=== PATIENT | female | born 1940 | race Caucasian/White ===

== ENCOUNTER 2023-03-19 13:33 | Inpatient (IN) | payer MEDICARE, OTHER ==
[~2023-03-19] VITALS: Ht 152.4 cm; Wt 77.6 kg
[2023-03-19 14:28] LABS: BASOPHILS # (AUTO) 0.1 K/uL (0.0-0.2); BASOPHILS % (AUTO) 0.7 % (0.0-2.0); EOSINOPHILS # (AUTO) 0.1 K/uL (0.0-0.7); EOSINOPHILS % (AUTO) 0.9 % (0.0-6.0); HEMATOCRIT 37 % (33-45); HEMOGLOBIN 12.2 g/dL (11.5-14.8); LYMPHOCYTES # (AUTO) 2.1 K/uL (0.8-4.8); LYMPHOCYTES % (AUTO) 22.9 % (20.0-44.0); MEAN CORPUSCULAR HEMOGLOBIN 29 PG (26.0-33.0); MEAN CORPUSCULAR HGB CONC 33 g/dl (31.0-36.0); MEAN CORPUSCULAR VOLUME 88 fL (82-100); MONOCYTES # (AUTO) 0.6 K/uL (0.1-1.30); MONOCYTES % (AUTO) 6.3 % (2.0-12.0); NEUTROPHILS # (AUTO) 6.3 K/uL (1.8-8.9); NEUTROPHILS % (AUTO) 69.2 % (43.0-81.0); PLATELET COUNT (AUTO) 310 K/uL (150-450); RED BLOOD CELL COUNT(AUTO) 4.18 MIL/uL (4.0-5.2); RED CELL DISTRIBUTION WIDTH 14.4 % (11.5-15.0); WHITE BLOOD COUNT (AUTO) 9.1 K/uL (4.3-11.0)
[2023-03-19 14:36] LABS: CARBON DIOXIDE 25 mmol/L (21-32); CHLORIDE 100 mmol/L (98-107); CREATININE 1.1 mg/dL (0.6-1.3); GLUCOSE 203 mg/dL (74-106); POTASSIUM 3.5 mmol/L (3.5-5.1); SODIUM SERUM 137 mmol/L (136-145); UREA NITROGEN, BLOOD 21 mg/dL (7-18)
[2023-03-19 14:50] LABS: NT-PRO BNP 64 pg/mL (0-125)
[2023-03-19] MEDS ORDERED: TRAM50TA2 PO (15:30)
[2023-03-19] MEDS ORDERED: INSU100V7 SQ (15:30)
[2023-03-19] MEDS ORDERED: METF-442 PO (15:30)
[2023-03-19] MEDS ORDERED: AMLO-212 PO (15:30)
[2023-03-19] MEDS ORDERED: LEVO75TA7 PO (15:30)
[2023-03-19] MEDS ORDERED: SEMA0.25 PO (15:30)
[2023-03-19] MEDS ORDERED: INSU100V3 SQ (15:30)
[2023-03-19] MEDS ORDERED: ACET-73 PO (15:30)
[2023-03-19] MEDS ORDERED: INSU100V SQ (15:41)
[2023-03-19] MEDS ORDERED: IV NS 0.9% 250 ML IV ONE (16:43)
[2023-03-19] MEDS ORDERED: IOHEXOL-350 100 ML VIAL IV ONE (16:43)
[2023-03-19] MEDS ORDERED: ONDANSETRON HCL/PF 4 MG/2 ML VIAL IVP PRN (17:00)
[2023-03-19] MEDS ORDERED: ACETAMINOPHEN ES 500 MG TABLET PO PRN (17:00)
[2023-03-19] MEDS ORDERED: TRAMADOL HCL 50 MG TABLET PO PRN (17:00)
[2023-03-19] MEDS ORDERED: NITROGLYCERIN 0.4 MG/TAB BOTTLE SL PRN (17:00)
[2023-03-19] MEDS ORDERED: ASPIRIN 81 MG TAB.CHEW PO ONE (19:30)
[2023-03-19] MEDS ORDERED: ASPIRIN 81 MG TAB.CHEW ONE (19:49)
[2023-03-19 20:34] LABS: ALBUMIN 3.5 g/dL (3.4-5.0); BILIRUBIN,DIRECT 0.1 mg/dL (0.0-0.2); BILIRUBIN,TOTAL 0.4 mg/dL (0.2-1.0); TOTAL PROTEIN, SERUM 7.5 g/dL (6.4-8.2)
[2023-03-19] MEDS: METFORMIN 500 MG TABLET PO SCH (23:04)
[2023-03-19] MEDS: MORPHINE SULFATE INJ 2 MG/ML DISP.SYRIN IV PRN ×2 (23:06→23:53)
[2023-03-19] MEDS: CARVEDILOL 6.25 MG TABLET PO SCH (23:07)
[2023-03-19] MEDS: INSULIN LISPRO/ASPART 100 UNIT/ML CARTRIDGE SQ SCH (23:29)
[2023-03-19] MEDS: INSULIN GLARGINE, 100 UNIT/ML CARTRIDGE SQ SCH (23:32)
[2023-03-20] VITALS: BP 159/70; TEMP 98.2; O2SAT 98
[2023-03-20 04:00] VITALS: BP 125/60; TEMP 98.1; O2SAT 99
[2023-03-20] MEDS: LEVOTHYROXINE SODIUM 75 MCG TABLET PO SCH ×2 (07:52→08:21)
[2023-03-20 08:00] VITALS: BP 127/60; TEMP 98.4; O2SAT 97
[2023-03-20] MEDS: AMLODIPINE BESYLATE 5 MG TABLET PO SCH (08:26)
[2023-03-20] MEDS: METFORMIN 500 MG TABLET PO SCH ×2 (08:26→17:17)
[2023-03-20] MEDS: CARVEDILOL 6.25 MG TABLET PO SCH ×2 (08:27→21:00)
[2023-03-20] MEDS: INSULIN LISPRO/ASPART 100 UNIT/ML CARTRIDGE SQ SCH ×3 (08:47→17:27)
[2023-03-20 09:28] LABS: CHOLESTEROL 145 mg/dL (<200); HDL CHOLESTEROL 36 mg/dL (40-60); LDL 50 mg/dL (0-99); TRIGLYCERIDES 319 mg/dL (30-150)
[2023-03-20 12:00] VITALS: BP 113/63; TEMP 98.2; O2SAT 97
[2023-03-20 16:00] VITALS: BP 117/54; TEMP 98.6; O2SAT 98
[2023-03-20 17:16] LABS: BASOPHILS # (AUTO) 0.1 K/uL (0.0-0.2); BASOPHILS % (AUTO) 0.7 % (0.0-2.0); EOSINOPHILS # (AUTO) 0.1 K/uL (0.0-0.7); EOSINOPHILS % (AUTO) 1.5 % (0.0-6.0); HEMATOCRIT 35 % (33-45); HEMOGLOBIN 11.7 g/dL (11.5-14.8); LYMPHOCYTES # (AUTO) 1.9 K/uL (0.8-4.8); LYMPHOCYTES % (AUTO) 24.3 % (20.0-44.0); MEAN CORPUSCULAR HEMOGLOBIN 29 PG (26.0-33.0); MEAN CORPUSCULAR HGB CONC 34 g/dl (31.0-36.0); MEAN CORPUSCULAR VOLUME 87 fL (82-100); MONOCYTES # (AUTO) 0.6 K/uL (0.1-1.30); MONOCYTES % (AUTO) 7.4 % (2.0-12.0); NEUTROPHILS # (AUTO) 5.2 K/uL (1.8-8.9); NEUTROPHILS % (AUTO) 66.1 % (43.0-81.0); PLATELET COUNT (AUTO) 259 K/uL (150-450); RED BLOOD CELL COUNT(AUTO) 3.99 MIL/uL (4.0-5.2); RED CELL DISTRIBUTION WIDTH 14.1 % (11.5-15.0); WHITE BLOOD COUNT (AUTO) 7.9 K/uL (4.3-11.0)
[2023-03-20 18:06] LABS: CALCIUM, SERUM 9.8 mg/dL (8.5-10.1); POTASSIUM 3.8 mmol/L (3.5-5.1)
[2023-03-20 20:00] VITALS: BP 134/61; TEMP 98.1; O2SAT 97
[2023-03-20] MEDS: INSULIN GLARGINE, 100 UNIT/ML CARTRIDGE SQ SCH (22:00)
[2023-03-21] VITALS: BP 137/64; TEMP 98.1; O2SAT 98
[2023-03-21 04:00] VITALS: BP 124/58; TEMP 98.4; O2SAT 97
[2023-03-21] MEDS ORDERED: MAGNESIUM HYDROXIDE 30 ML UDC PO PRN (05:30)
[2023-03-21] MEDS: METFORMIN 500 MG TABLET PO SCH (07:43)
[2023-03-21] MEDS: INSULIN LISPRO/ASPART 100 UNIT/ML CARTRIDGE SQ SCH ×2 (07:45→12:56)
[2023-03-21 08:00] VITALS: BP 117/82; TEMP 98.6; O2SAT 97
[2023-03-21] MEDS: CARVEDILOL 6.25 MG TABLET PO SCH (08:41)
[2023-03-21] MEDS: AMLODIPINE BESYLATE 5 MG TABLET PO SCH (08:41)
[2023-03-21 12:00] VITALS: BP 143/65; TEMP 98.2; O2SAT 97
[2023-03-24] MEDS ORDERED: Medication Not On Formulary EA (Semaglutide (Ozempic) 0.25 MG) PO SCH (17:00)
== END 2023-03-21 17:20 | disposition home or self-care (01) | DRG 313 ==
LOC: ER 13:40 → TELE1 20:51
PROVIDERS: ADMIT Internal Medicine
DX: R07.89 Other chest pain (principal); I10 Essential (primary) hypertension; E03.9 Hypothyroidism, unspecified; E11.9 Type 2 diabetes mellitus without complications; Z85.3 Personal history of malignant neoplasm of breast; Z20.822 Contact with and (suspected) exposure to COVID-19; Z79.4 Long term (current) use of insulin; Z79.84 Long term (current) use of oral hypoglycemic drugs; Z79.899 Other long term (current) drug therapy; Z79.85 Long-term (current) use of injectable non-insulin antidiabetic drugs; Z79.890 Hormone replacement therapy
CPT/HCPCS: 36415; 71045-TC; 80048-TC; 80061-TC; 80076-TC; 82962-TC; 83690-TC; 83880; 84484-TC; 85025-TC; 93307-TC; G0378; J1815; J2270; J7050; Q9967

== ENCOUNTER 2024-06-04 12:54 | Inpatient (IN) | payer MEDICARE, OTHER ==
[~2024-06-04] VITALS: Ht 152.4 cm; Wt 82.6 kg
[~2024-06-04 12:54] MED LIST: ACET-73 PO; AMLO-212 PO; INSU100V SQ; INSU100V7 SQ; LEVO75TA7 PO; METF-442 PO; SEMA0.25 PO; TRAM50TA2 PO
[2024-06-04] MEDS: IV NS 0.9% 500 ML BAG IV ONE (14:18)
[2024-06-04] MEDS ORDERED: LATA2.5D15 EACHEYE (16:41)
[2024-06-04] MEDS ORDERED: CARB15DR EACHEYE (16:41)
[2024-06-04] MEDS ORDERED: PANT40TA49 PO (16:41)
[2024-06-04] MEDS ORDERED: ROSU40TA23 PO (16:41)
[2024-06-04] MEDS ORDERED: LOSA25TA27 PO (16:41)
[2024-06-04] MEDS ORDERED: DICL100G34 TP (16:41)
[2024-06-04 17:23] LABS: BASOPHILS % (AUTO) 0.8 % (0.0-2.0); EOSINOPHILS # (AUTO) 0.2 K/uL (0.0-0.7); EOSINOPHILS % (AUTO) 2.9 % (0.0-6.0); HEMATOCRIT 31 % (33-45); HEMOGLOBIN 10.1 g/dL (11.5-14.8); LYMPHOCYTES # (AUTO) 1.7 K/uL (0.8-4.8); LYMPHOCYTES % (AUTO) 28.4 % (20.0-44.0); MEAN CORPUSCULAR HEMOGLOBIN 29 PG (26.0-33.0); MEAN CORPUSCULAR HGB CONC 33 g/dl (31.0-36.0); MEAN CORPUSCULAR VOLUME 86 fL (82-100); MONOCYTES # (AUTO) 0.4 K/uL (0.1-1.30); MONOCYTES % (AUTO) 7.6 % (2.0-12.0); NEUTROPHILS # (AUTO) 3.5 K/uL (1.8-8.9); NEUTROPHILS % (AUTO) 60.3 % (43.0-81.0); PLATELET COUNT (AUTO) 263 K/uL (150-450); RED BLOOD CELL COUNT(AUTO) 3.54 MIL/uL (4.0-5.2); RED CELL DISTRIBUTION WIDTH 15.2 % (11.5-15.0); WHITE BLOOD COUNT (AUTO) 5.8 K/uL (4.3-11.0)
[2024-06-04 17:40] LABS: CALCIUM, SERUM 9.1 mg/dL (8.5-10.1); CARBON DIOXIDE 25 mmol/L (21-32); CHLORIDE 108 mmol/L (98-107); CREATININE 1.3 mg/dL (0.6-1.3); GLUCOSE 256 mg/dL (74-106); POTASSIUM 4.3 mmol/L (3.5-5.1); SODIUM SERUM 142 mmol/L (136-145); UREA NITROGEN, BLOOD 25 mg/dL (7-18)
[2024-06-04 17:42] LABS: APPEARANCE,URINE CLEAR (CLEAR); BILIRUBIN,URINE NEGATIVE (NEGATIVE); BLOOD, URINE 3+ Ery/uL (NEGATIVE); COLOR,URINE YELLOW (YELLOW); KETONES,URINE NEGATIVE (NEGATIVE); LEUKOCYTE ESTERASE ,URINE NEGATIVE (NEGATIVE); NITRITE, URINE NEGATIVE (NEGATIVE); PH,URINE 6.5 (5.0-8.0); PROTEIN,URINE TRACE mg/dl (NEGATIVE); UGLUCOSE 1+ mg/dL (NEGATIVE); UROBILINOGEN,URINE 0.2 EU/dL (0.2)
[2024-06-04 17:43] LABS: PREGNANCY TEST URINE QUAL NEGATIVE (NEGATIVE)
[2024-06-04 17:55] LABS: ALANINE AMINOTRANSFERASE 82 U/L (12-78); ALBUMIN 3.2 g/dL (3.4-5.0); ALKALINE PHOSPHATASE 112 U/L (46-116); ASPARTATE AMINOTRANSFERASE 143 U/L (15-37); BILIRUBIN,DIRECT 0.1 mg/dL (0.0-0.2); BILIRUBIN,TOTAL 0.3 mg/dL (0.2-1.0); TOTAL PROTEIN, SERUM 7.1 g/dL (6.4-8.2)
[2024-06-04 18:08] LABS: THYROID STIMULATING HORMONE 2.27 uIU/mL (0.358-3.74)
[2024-06-04 18:24] LABS: BACTERIA,URINE Few /HPF (None Seen); SQUAMOUS EPITHELIAL CELL,UR Few /HPF (None Seen)
[2024-06-04 18:25] LABS: ADD URINE CULTURE YES
[2024-06-04] MEDS ORDERED: DEXTROSE 50%-WATER 50 ML DISP.SYRIN IV PRN (18:30)
[2024-06-04] MEDS ORDERED: Z GUARD REMEDY 4 OZ OINT TP PRN (18:30)
[2024-06-04] MEDS ORDERED: ONDANSETRON HCL/PF 4 MG/2 ML VIAL IVP PRN (18:30)
[2024-06-04] MEDS ORDERED: MAG HYDROX/AL HYDROX/SIMETH 30 ML UDC PO PRN (18:30)
[2024-06-04] MEDS ORDERED: ZOLPIDEM TARTRATE 5 MG TABLET PO PRN (18:30)
[2024-06-04] MEDS: GABAPENTIN 100 MG CAPSULE PO SCH (18:40)
[2024-06-04] MEDS: ENOXAPARIN SODIUM 40 MG/0.4 ML DISP.SYRIN SQ SCH (18:42)
[2024-06-04 19:53] LABS: THYROID STIMULATING HORMONE 2.33 uIU/mL (0.358-3.74)
[2024-06-04 20:00] VITALS: BP 152/69; TEMP 97.7; O2SAT 98
[2024-06-04] MEDS: BLOOD SUGAR DIAGNOSTIC 1 EACH STRIP IN SCH (20:54)
[2024-06-04] MEDS: IV NS 0.9% 1,000 ML IV PRN (21:20)
[2024-06-04] MEDS: INSULIN REGULAR, HUMAN 100 UNIT/ML 3 ML VIAL SQ PRN (21:23)
[2024-06-04] MEDS: ACETAMINOPHEN 325 MG TABLET PO PRN (23:01)
[2024-06-05] VITALS (8 sets, daily range): BP systolic 142–178; BP diastolic 49–100; TEMP 97.7–98.4; O2SAT 97–100
[2024-06-05] MEDS: HYDROCODONE/APAP 5/325MG TABLET PO PRN (01:26)
[2024-06-05 06:55] LABS: BASOPHILS # (AUTO) 0.1 K/uL (0.0-0.2); BASOPHILS % (AUTO) 1.4 % (0.0-2.0); EOSINOPHILS # (AUTO) 0.2 K/uL (0.0-0.7); EOSINOPHILS % (AUTO) 4.1 % (0.0-6.0); HEMATOCRIT 29 % (33-45); LYMPHOCYTES # (AUTO) 1.7 K/uL (0.8-4.8); MEAN CORPUSCULAR HEMOGLOBIN 29 PG (26.0-33.0); MEAN CORPUSCULAR HGB CONC 34 g/dl (31.0-36.0); MEAN CORPUSCULAR VOLUME 86 fL (82-100); MONOCYTES # (AUTO) 0.5 K/uL (0.1-1.30); MONOCYTES % (AUTO) 9.4 % (2.0-12.0); NEUTROPHILS # (AUTO) 2.7 K/uL (1.8-8.9); NEUTROPHILS % (AUTO) 52.1 % (43.0-81.0); PLATELET COUNT (AUTO) 256 K/uL (150-450); RED BLOOD CELL COUNT(AUTO) 3.44 MIL/uL (4.0-5.2); RED CELL DISTRIBUTION WIDTH 14.8 % (11.5-15.0); WHITE BLOOD COUNT (AUTO) 5.2 K/uL (4.3-11.0)
[2024-06-05 07:28] LABS: CALCIUM, SERUM 9.4 mg/dL (8.5-10.1); CREATININE 1.3 mg/dL (0.6-1.3); MAGNESIUM 2.3 mg/dL (1.8-2.4); PHOSPHORUS 4.2 mg/dL (2.5-4.9)
[2024-06-05] MEDS: PANTOPRAZOLE 40 MG TABLET.DR PO SCH (08:30)
[2024-06-05] MEDS: hydrALAZINE HCL IV 20 MG VIAL IV PRN (12:00)
[2024-06-05] MEDS: LEVOTHYROXINE SODIUM 75 MCG TABLET PO SCH (15:22)
[2024-06-05] MEDS: LOSARTAN POTASSIUM 25 MG TABLET PO SCH (15:24)
[2024-06-05] MEDS: ATORVASTATIN 40 MG TABLET PO SCH (22:02)
[2024-06-05] MEDS: LATANOPROST EYE DROP 0.005% 2.5 ML BOTTLE EACHEYE SCH (22:14)
[2024-06-05] MEDS: INSULIN GLARGINE, 100 UNIT/ML CARTRIDGE SQ SCH (22:28)
[2024-06-05] MEDS: MAGNESIUM HYDROXIDE 30 ML UDC PO PRN (22:31)
[2024-06-06 07:02] LABS: BASOPHILS # (AUTO) 0.1 K/uL (0.0-0.2); BASOPHILS % (AUTO) 1.1 % (0.0-2.0); EOSINOPHILS # (AUTO) 0.2 K/uL (0.0-0.7); EOSINOPHILS % (AUTO) 3.4 % (0.0-6.0); HEMATOCRIT 31 % (33-45); HEMOGLOBIN 10.5 g/dL (11.5-14.8); LYMPHOCYTES # (AUTO) 1.7 K/uL (0.8-4.8); LYMPHOCYTES % (AUTO) 31.6 % (20.0-44.0); MEAN CORPUSCULAR HEMOGLOBIN 29 PG (26.0-33.0); MEAN CORPUSCULAR HGB CONC 34 g/dl (31.0-36.0); MEAN CORPUSCULAR VOLUME 86 fL (82-100); MONOCYTES # (AUTO) 0.6 K/uL (0.1-1.30); MONOCYTES % (AUTO) 10.4 % (2.0-12.0); NEUTROPHILS # (AUTO) 2.9 K/uL (1.8-8.9); NEUTROPHILS % (AUTO) 53.5 % (43.0-81.0); PLATELET COUNT (AUTO) 276 K/uL (150-450); RED BLOOD CELL COUNT(AUTO) 3.64 MIL/uL (4.0-5.2); RED CELL DISTRIBUTION WIDTH 14.9 % (11.5-15.0); WHITE BLOOD COUNT (AUTO) 5.4 K/uL (4.3-11.0)
[2024-06-06 07:22] LABS: ALBUMIN 3.4 g/dL (3.4-5.0); BILIRUBIN,TOTAL 0.4 mg/dL (0.2-1.0); CALCIUM, SERUM 9.7 mg/dL (8.5-10.1); CREATININE 1.4 mg/dL (0.6-1.3); MAGNESIUM 2.6 mg/dL (1.8-2.4); PHOSPHORUS 3.4 mg/dL (2.5-4.9); POTASSIUM 3.9 mmol/L (3.5-5.1); TOTAL PROTEIN, SERUM 7.7 g/dL (6.4-8.2)
[2024-06-06 08:00] VITALS: BP 145/66; TEMP 98.2; O2SAT 96
[2024-06-06] MEDS ORDERED: PANTOPRAZOLE 40 MG TABLET.DR PO SCH (09:00)
[2024-06-06] MEDS ORDERED: GABA100C PO (12:29)
[2024-06-06 16:00] VITALS: BP 130/68; TEMP 98.2; O2SAT 98
== END 2024-06-06 18:37 | disposition home health service (06) | DRG 74 ==
LOC: ER 13:06 → TELE 15:20 → MED 06-05 10:51
DX: E11.42 Type 2 diabetes mellitus with diabetic polyneuropathy (principal); N17.9 Acute kidney failure, unspecified; Z85.3 Personal history of malignant neoplasm of breast; E03.9 Hypothyroidism, unspecified; E11.22 Type 2 diabetes mellitus with diabetic chronic kidney disease; N18.30 Chronic kidney disease, stage 3 unspecified; M89.8X9 Other specified disorders of bone, unspecified site; I12.9 Hypertensive chronic kidney disease with stage 1 through stage 4 chronic kidney disease, or unspecified chronic kidney disease; Z79.4 Long term (current) use of insulin; Z79.85 Long-term (current) use of injectable non-insulin antidiabetic drugs; Z79.890 Hormone replacement therapy; Z79.84 Long term (current) use of oral hypoglycemic drugs; G89.29 Other chronic pain; E66.9 Obesity, unspecified; Z68.35 Body mass index [BMI] 35.0-35.9, adult; E11.65 Type 2 diabetes mellitus with hyperglycemia; D64.9 Anemia, unspecified; E83.41 Hypermagnesemia
CPT/HCPCS: 36415; 71045-TC; 76770-TC; 80048-TC; 80053-TC; 80061-TC; 80076-TC; 81001; 82962-TC; 83735-TC; 83880; 84100-TC; 84443-TC; 84484-TC; 84703-TC; 85025-TC; 86850-TC; 87086-TC; 93307-TC; 97110-TC; 97116-TC; 97530-TC; A4223; G0378; J0360; J1650; J1815; J7030

== ENCOUNTER 2024-12-07 09:40 | Inpatient (IN) | payer MEDICARE, OTHER ==
[~2024-12-07] VITALS: Ht 142.2 cm; Wt 80.4 kg
[~2024-12-07 09:40] MED LIST changes: -AMLO-212 PO; +CARB15DR EACHEYE; +DICL100G34 TP; +GABA100C PO; +LATA2.5D15 EACHEYE; +LOSA25TA27 PO; -METF-442 PO; +PANT40TA49 PO; +ROSU40TA23 PO; -SEMA0.25 PO
[2024-12-07 10:21] LABS: PLATELET COUNT (AUTO) 271 K/uL (150-450); RED BLOOD CELL COUNT(AUTO) 3.47 MIL/uL (4.0-5.2); RED CELL DISTRIBUTION WIDTH 15.6 % (11.5-15.0); WHITE BLOOD COUNT (AUTO) 4.3 K/uL (4.3-11.0)
[2024-12-07 10:33] LABS: CALCIUM, SERUM 9.5 mg/dL (8.5-10.1); CREATININE 1.2 mg/dL (0.6-1.3); SODIUM SERUM 139 mmol/L (136-145); UREA NITROGEN, BLOOD 24 mg/dL (7-18)
[2024-12-07] MEDS ORDERED: METF1000 PO (11:05)
[2024-12-07] MEDS ORDERED: CHOL100062 PO (11:05)
[2024-12-07] MEDS ORDERED: HYDROCODONE/APAP 5/325MG TABLET PO PRN (12:00)
[2024-12-07] MEDS ORDERED: TEMAZEPAM 15 MG CAPSULE PO PRN (12:00)
[2024-12-07] MEDS ORDERED: NITROGLYCERIN 0.4 MG/TAB BOTTLE SL PRN (12:00)
[2024-12-07] MEDS ORDERED: MAG HYDROX/AL HYDROX/SIMETH 30 ML UDC PO PRN (12:00)
[2024-12-07] MEDS ORDERED: DEXTROSE 50%-WATER 50 ML DISP.SYRIN IV PRN (12:00)
[2024-12-07 13:06] VITALS: BP 152/72; TEMP 97.8; O2SAT 99
[2024-12-07] MEDS: BLOOD SUGAR DIAGNOSTIC 1 EACH STRIP IN SCH (13:15)
[2024-12-07] MEDS: POLYVINYL ALCOHOL/POVIDONE 0.4 ML DROPERETTE EACHEYE SCH (13:17)
[2024-12-07] MEDS: DICLOFENAC TOPICAL 100 GM TUBE TP SCH (13:18)
[2024-12-07] MEDS: Z GUARD REMEDY 4 OZ OINT TP PRN (13:18)
[2024-12-07] MEDS: ENOXAPARIN SODIUM 30 MG/0.3 ML DISP.SYRIN SQ SCH (13:23)
[2024-12-07 16:00] VITALS: BP 209/75; TEMP 98; O2SAT 97
[2024-12-07] MEDS ORDERED: IV NS 0.9% 250 ML IV ONE (16:08)
[2024-12-07] MEDS ORDERED: IOHEXOL-350 100 ML VIAL IV ONE (16:08)
[2024-12-07] MEDS ORDERED: NITROGLYCERIN 0.4 MG/TAB BOTTLE ONE (16:13)
[2024-12-07] MEDS ORDERED: METOPROLOL TARTRATE INJ 5 MG/5 ML AMPUL ONE (16:14)
[2024-12-07] MEDS: METOPROLOL TARTRATE INJ 5 MG/5 ML AMPUL IVP PRN (16:20)
[2024-12-07] MEDS: NITROGLYCERIN 0.4 MG/TAB BOTTLE SL ONE (16:23)
[2024-12-07] MEDS: hydrALAZINE HCL IV 20 MG VIAL IV PRN (16:39)
[2024-12-07] MEDS ORDERED: METFORMIN 500 MG TABLET PO SCH ×2 (17:00)
[2024-12-07 17:44] VITALS: BP_SYST 160; BP_SYST 206; BP_DIAS 76; BP_DIAS 90
[2024-12-07] MEDS: INSULIN ASPART/LISPRO 100 UNIT/ML CARTRIDGE SQ SCH (17:55)
[2024-12-07 20:00] VITALS: BP 160/88; TEMP 97.5; O2SAT 98
[2024-12-07] MEDS: LATANOPROST EYE DROP 0.005% 2.5 ML BOTTLE EACHEYE SCH (21:25)
[2024-12-07] MEDS: INSULIN GLARGINE, 100 UNIT/ML CARTRIDGE SQ SCH (21:31)
[2024-12-07] MEDS: INSULIN REGULAR, HUMAN 100 UNIT/ML 3 ML VIAL SQ PRN (21:32)
[2024-12-07] MEDS: diphenhydrAMINE HCL ELIX 25 MG/10 ML UDC PO PRN (23:29)
[2024-12-08] VITALS: BP 147/93; TEMP 97.5; O2SAT 98
[2024-12-08] MEDS: ACETAMINOPHEN 325 MG TABLET PO PRN (01:33)
[2024-12-08] MEDS: TRAMADOL HCL 50 MG TABLET PO PRN (03:32)
[2024-12-08 04:00] VITALS: BP_SYST 158; BP_SYST 210; BP_DIAS 100; BP_DIAS 95; TEMP 97.5; O2SAT 99
[2024-12-08] MEDS: LORAZEPAM 1 MG TABLET PO ONE (04:06)
[2024-12-08 06:25] LABS: PLATELET COUNT (AUTO) 317 K/uL (150-450); RED BLOOD CELL COUNT(AUTO) 3.90 MIL/uL (4.0-5.2); RED CELL DISTRIBUTION WIDTH 15.7 % (11.5-15.0); WHITE BLOOD COUNT (AUTO) 5.8 K/uL (4.3-11.0)
[2024-12-08 07:06] LABS: CALCIUM, SERUM 10.1 mg/dL (8.5-10.1); CREATININE 1.1 mg/dL (0.6-1.3); PHOSPHORUS 3.7 mg/dL (2.5-4.9); SODIUM SERUM 139.0 mmol/L (136-145); UREA NITROGEN, BLOOD 16.0 mg/dL (7-18)
[2024-12-08 07:20] LABS: LDL 172.0 mg/dL (0-99)
[2024-12-08 08:00] VITALS: BP 206/96; TEMP 98.1; O2SAT 99
[2024-12-08] MEDS: LOSARTAN POTASSIUM 25 MG TABLET PO SCH (08:08)
[2024-12-08] MEDS: ASPIRIN 81 MG TAB.CHEW PO SCH (08:08)
[2024-12-08] MEDS: PANTOPRAZOLE 40 MG TABLET.DR PO SCH (08:08)
[2024-12-08] MEDS: CHOLECALCIFEROL 1,000 UNIT TABLET (VIT D3) PO SCH (08:08)
[2024-12-08] MEDS: LEVOTHYROXINE SODIUM 75 MCG TABLET PO SCH (08:09)
[2024-12-08] MEDS ORDERED: NITROGLYCERIN 30 GM TUBE TP SCH (09:00)
[2024-12-08] MEDS: VALSARTAN 80 MG TABLET PO SCH (09:23)
[2024-12-08] MEDS: ATORVASTATIN 40 MG TABLET PO SCH (09:23)
[2024-12-08] MEDS: ONDANSETRON HCL/PF 4 MG/2 ML VIAL IVP PRN (10:23)
[2024-12-08 12:00] VITALS: BP 136/64; TEMP 98.2; O2SAT 98
[2024-12-08 16:00] VITALS: BP 100/50; TEMP 97.8; O2SAT 98
[2024-12-08] MEDS: MAGNESIUM HYDROXIDE 30 ML UDC PO PRN (18:37)
[2024-12-08 20:00] VITALS: BP 115/60; TEMP 98.1; O2SAT 98
[2024-12-08] MEDS: NITROGLYCERIN PACKET 1 GM PACKET TOP SCH (21:25)
[2024-12-09] VITALS: BP 108/57; TEMP 97.7; O2SAT 98
[2024-12-09 04:00] VITALS: BP 104/60; TEMP 98.8; O2SAT 99
[2024-12-09 08:29] VITALS: BP 113/67; TEMP 98.8; O2SAT 9; O2SAT 98
[2024-12-09] MEDS ORDERED: DOCUSATE SODIUM 100 MG CAPSULE PO SCH (11:00)
[2024-12-09] MEDS: DOCUSATE SODIUM 100 MG CAPSULE PO PRN (11:22)
[2024-12-09] MEDS ORDERED: DOCUSATE SODIUM 100 MG CAPSULE PO PRN (11:30)
[2024-12-09 12:00] VITALS: BP 104/53; TEMP 98.4; O2SAT 98
[2024-12-09 15:08] LABS: INR 1.02 (0.91-1.10)
[2024-12-09 16:00] VITALS: BP 114/61; TEMP 98.4; O2SAT 100
[2024-12-09 20:00] VITALS: BP 117/70; TEMP 98.5; O2SAT 96
[2024-12-10] VITALS: BP 135/69; TEMP 98.3; O2SAT 98
[2024-12-10 04:00] VITALS: BP 108/45; TEMP 98.5; O2SAT 96
[2024-12-10 06:19] LABS: PLATELET COUNT (AUTO) 307 K/uL (150-450); RED BLOOD CELL COUNT(AUTO) 3.80 MIL/uL (4.0-5.2); RED CELL DISTRIBUTION WIDTH 16.2 % (11.5-15.0); WHITE BLOOD COUNT (AUTO) 5.1 K/uL (4.3-11.0)
[2024-12-10 06:38] LABS: CALCIUM, SERUM 10.0 mg/dL (8.5-10.1); CREATININE 1.4 mg/dL (0.6-1.3); SODIUM SERUM 141.0 mmol/L (136-145); UREA NITROGEN, BLOOD 24.0 mg/dL (7-18)
[2024-12-10 08:00] VITALS: BP 145/61; TEMP 98.2; O2SAT 97
[2024-12-10 20:00] VITALS: BP 155/76; TEMP 98.1; O2SAT 97
[2024-12-11] VITALS: BP 145/69; TEMP 98.6; O2SAT 96
[2024-12-11 04:00] VITALS: BP 148/71; TEMP 98.6; O2SAT 97
[2024-12-11 06:32] LABS: PLATELET COUNT (AUTO) 309 K/uL (150-450); RED BLOOD CELL COUNT(AUTO) 3.69 MIL/uL (4.0-5.2); RED CELL DISTRIBUTION WIDTH 15.8 % (11.5-15.0); WHITE BLOOD COUNT (AUTO) 5.7 K/uL (4.3-11.0)
[2024-12-11 06:37] LABS: CALCIUM, SERUM 9.5 mg/dL (8.5-10.1); CREATININE 1.3 mg/dL (0.6-1.3); SODIUM SERUM 139.0 mmol/L (136-145); UREA NITROGEN, BLOOD 25.0 mg/dL (7-18)
[2024-12-11 08:00] VITALS: BP 131/63; TEMP 98.1; O2SAT 96
[2024-12-11 08:58] LABS: IRON, SERUM 45 ug/dl (50-175)
[2024-12-11] MEDS ORDERED: ATOR40TA PO (10:23)
[2024-12-11] MEDS: LACTULOSE 10 G/15 ML UDC (PYXIS) PO PRN (11:20)
[2024-12-11] MEDS: LACTULOSE 10 G/15 ML UDC (PYXIS) PR ONE (11:23)
[2024-12-11 12:00] VITALS: BP 123/67; TEMP 97.9; O2SAT 96
[2024-12-11 12:12] VITALS: BP 123/67
== END 2024-12-11 15:30 | disposition home or self-care (01) | DRG 287 ==
LOC: ER 09:40 → TELE1 12:01
PROVIDERS: ADMIT Nurse Practitioner Acute Care; ATTEND Nurse Practitioner Family
PROC: 4A023N7 Measurement of Cardiac Sampling and Pressure, Left Heart, Percutaneous Approach (ICD-10-PCS; principal; 2024-12-10)
PROC: B211YZZ Fluoroscopy of Multiple Coronary Arteries using Other Contrast (ICD-10-PCS; 2024-12-10)
PROC: B215YZZ Fluoroscopy of Left Heart using Other Contrast (ICD-10-PCS; 2024-12-10)
DX: I25.110 Atherosclerotic heart disease of native coronary artery with unstable angina pectoris (principal); Z68.41 Body mass index [BMI] 40.0-44.9, adult; N17.9 Acute kidney failure, unspecified; E11.42 Type 2 diabetes mellitus with diabetic polyneuropathy; I10 Essential (primary) hypertension; D63.8 Anemia in other chronic diseases classified elsewhere; E11.65 Type 2 diabetes mellitus with hyperglycemia; Z85.3 Personal history of malignant neoplasm of breast; Z79.4 Long term (current) use of insulin; Z79.890 Hormone replacement therapy; Z79.899 Other long term (current) drug therapy; E78.5 Hyperlipidemia, unspecified; E03.9 Hypothyroidism, unspecified; Z79.84 Long term (current) use of oral hypoglycemic drugs; E66.01 Morbid (severe) obesity due to excess calories; M89.8X9 Other specified disorders of bone, unspecified site; K59.00 Constipation, unspecified; G47.33 Obstructive sleep apnea (adult) (pediatric)
CPT/HCPCS: 36415; 71045-TC; 73620-TC; 75574; 80048-TC; 80061-TC; 82728-TC; 82962-TC; 83540-TC; 83735-TC; 84100-TC; 84443-TC; 84484-TC; 85025-TC; 85730-TC; 86850-TC; 87081-TC; 93307-TC; 97110-TC; 97116-TC; 97530-TC; 97535-TC; G0378; J0360; J1650; J1815; J2405; J3490; J7050; Q0163; Q9967